=== PATIENT | male | born 1955 | race Caucasian/White ===

== ENCOUNTER 2017-12-08 12:16 | Day surgery (SDC) | payer BC ==
[~2017-12-08 12:16] MED LIST: Acetaminophen TAB* 325 MG PO PRN; Buffered Lidocaine 0.9% SYRIN* 5 ML/SYR SYRINGE INTRADERM ONE
[2017-12-08] MEDS ORDERED: fentaNYL* 50 MCG/ML 2 ML VIAL (100 MCG VIAL) ONE (12:18)
[2017-12-08] MEDS ORDERED: Midazolam* 1 MG/ML 5 ML VIAL (5 MG) ONE (12:18)
[2017-12-08] MEDS ORDERED: Povidone Iodine 5% OPTH* 30 ML BTL ONE (14:34)
[2017-12-08] MEDS ORDERED: acetaZOLAMIDE TAB* 250 MG ONE (14:34)
[2017-12-08] MEDS ORDERED: Lidocaine 2% EPI 1:200000 MPF*10-20 ML VIAL ONE (14:34)
[2017-12-08] MEDS ORDERED: Cyclopentolate 1% OPTH.SOL* 2 ML BTL ONE (14:34)
[2017-12-08] MEDS ORDERED: Phenylephrine 2.5% OPTH.SOL* 2 ML BTL ONE (14:34)
[2017-12-08] MEDS ORDERED: Ketorolac 0.5% OPHTH (NF) 0.5 % 5 ML BTL ONE (14:34)
[2017-12-08] MEDS ORDERED: Neomycin/Polymy/Dex OPTH.SUSP* MAXITROL 0.1% 5 ML ONE (14:34)
[2017-12-08] MEDS ORDERED: Proparacaine 0.5% OPHTH.SOL* 15 ML BTL ONE (14:34)
[2017-12-08] MEDS ORDERED: Lidocaine 1%* 5 ML VIAL ONE (14:34)
[2017-12-08 14:37] VITALS: BP 143/74
--- NOTE | 2017-12-09 03:03 | OP ---
OPERATIVE NOTE: DATE OF OPERATION: 12/08/17 - [facility] DATE OF : 59 SURGEON: Chris Latham M.D. PREOPERATIVE DIAGNOSIS: Cataract, left eye. POSTOPERATIVE DIAGNOSIS: Cataract, left eye. OPERATIVE PROCEDURE: Extracapsular cataract extraction with intraocular lens implant, left eye. DESCRIPTION OF PROCEDURE: The patient was brought to the operating room after being given 1/2% Alcaine with epinephrine drops in the preoperative area. The eye was prepped and draped in the usual sterile fashion. Sterile drape and eyelid speculum were placed. Again, topical 1/2% Alcaine with epinephrine was given. A paracentesis incision was made at the 3 o'clock position with the No.75 blade. Clear cornea incision 2.2 x 2.2-mm was created at the 6 o'clock position starting at the anterior limbus using the 2.2-mm keratome. The anterior chamber was irrigated with 0.4 mL of 1% non-preservative intracameral lidocaine and filled with DisCoVisc. A capsulorrhexis was completed using the cystotome and the Utrata forceps. Hydrodissection was performed with balanced salt solution. The lens nucleus was removed with the Phacoemulsification handpiece without incident. Cortex was removed with the irrigation-aspiration handpiece. The capsular bag was re-inflated using DisCoVisc and an [id number] implant was inserted with the shooter. Pupil was very small, so a Malyugin ring was used to dilate the pupil for capsulorrhexis and removed after the insertion of the lens. The lens was positioned to the 97-degree meridian. Horizontal reference cali made with the patient in the preoperative area in a seated position. The irrigation-aspiration handpiece was used to remove all residual DisCoVisc. The eye was refilled with balanced salt solution and the wound checked and found to be watertight. Topical Maxitrol drops were given. Indication for complex cataract surgery was pupil abnormalities requiring pupil dilation device. A bandage contact lens was placed at the end of the case. [id number]/[facility] #: [id number] MTDShannon
== END 2017-12-08 14:41 | disposition home or self-care (01) ==
LOC: OREAST 12:16
PROVIDERS: ATTEND Specialist
DX: H25.812 Combined forms of age-related cataract, left eye (principal); H21.562 Pupillary abnormality, left eye; H01.021 Squamous blepharitis right upper eyelid; H01.024 Squamous blepharitis left upper eyelid; H01.022 Squamous blepharitis right lower eyelid; H01.025 Squamous blepharitis left lower eyelid; H18 Other disorders of cornea; Z87.891 Personal history of nicotine dependence; I10 Essential (primary) hypertension
CPT/HCPCS: A9270-GY; J2250; J3010; V2787

== ENCOUNTER 2017-12-15 08:52 | Day surgery (SDC) | payer BC ==
[2017-12-15] MEDS ORDERED: Midazolam* 1 MG/ML 2 ML VIAL (2 MG) ONE ×3 (10:12→11:00)
[2017-12-15] MEDS ORDERED: fentaNYL* 50 MCG/ML 2 ML VIAL (100 MCG VIAL) ONE (10:56)
[2017-12-15 11:20] VITALS: BP 127/66
[2017-12-15] MEDS ORDERED: Ketorolac 0.5% OPHTH (NF) 0.5 % 5 ML BTL ONE (12:34)
[2017-12-15] MEDS ORDERED: acetaZOLAMIDE TAB* 250 MG ONE (12:34)
[2017-12-15] MEDS ORDERED: Lidocaine 2% EPI 1:200000 MPF*10-20 ML VIAL ONE (12:34)
[2017-12-15] MEDS ORDERED: Povidone Iodine 5% OPTH* 30 ML BTL ONE (12:34)
[2017-12-15] MEDS ORDERED: Phenylephrine 2.5% OPTH.SOL* 2 ML BTL ONE (12:34)
[2017-12-15] MEDS ORDERED: Lidocaine 1%* 5 ML VIAL ONE (12:34)
[2017-12-15] MEDS ORDERED: Cyclopentolate 1% OPTH.SOL* 2 ML BTL ONE (12:34)
[2017-12-15] MEDS ORDERED: Proparacaine 0.5% OPHTH.SOL* 15 ML BTL ONE (12:34)
[2017-12-15] MEDS ORDERED: Neomycin/Polymy/Dex OPTH.SUSP* MAXITROL 0.1% 5 ML ONE (12:34)
--- NOTE | 2017-12-15 20:45 | OP ---
DATE OF OPERATION: 12/15/17 - [facility] DATE OF : 59 SURGEON: Chris Latham M.D. PREOPERATIVE DIAGNOSIS: Cataract, right eye. POSTOPERATIVE DIAGNOSIS: Cataract, right eye. OPERATIVE PROCEDURE: Extracapsular cataract extraction with intraocular lens implant, right eye. DESCRIPTION OF PROCEDURE: The patient was brought to the operating room after being given 1/2% Alcaine with epinephrine drops in the preoperative area. The eye was prepped and draped in the usual sterile fashion. Sterile drape and eyelid speculum were placed. Again, topical 1/2% Alcaine with epinephrine was given. A paracentesis incision was made at the 9 o'clock position with the No.75 blade. Clear cornea incision 2.2 x 2.2-mm was created at the 12 o'clock position starting at the anterior limbus using the 2.2-mm keratome. The anterior chamber was irrigated with 0.4 mL of 1% non-preservative intracameral lidocaine and filled with DisCoVisc. A capsulorrhexis was completed using the cystotome and the Utrata forceps. Hydrodissection was performed with balanced salt solution. The lens nucleus was removed with the Phacoemulsification handpiece without incident. Cortex was removed with the irrigation-aspiration handpiece. The capsular bag was re-inflated using DisCoVisc and an [id number] implant was inserted with the shooter oriented to the 61-degree meridian. The pupil was only about 4 mm, so a Malyugin ring was used to dilate the pupil prior to capsulorrhexis and removed after orientation of the lens. The irrigation-aspiration handpiece was used to remove all residual DisCoVisc. The eye was refilled with balanced salt solution and the wound checked and found to be watertight. Topical Maxitrol drops were given. The indication for complex cataract surgery is pupil abnormalities requiring pupil dilation device. Horizontal reference margin made with the patient in the seated position in the preoperative area. [id number]/[facility] #: [id number] MTDD
== END 2017-12-15 11:22 | disposition home or self-care (01) ==
LOC: OREAST 08:52
PROVIDERS: ATTEND Specialist
DX: H25.811 Combined forms of age-related cataract, right eye (principal); H21.561 Pupillary abnormality, right eye; H01.021 Squamous blepharitis right upper eyelid; H01.024 Squamous blepharitis left upper eyelid; H01.022 Squamous blepharitis right lower eyelid; H01.025 Squamous blepharitis left lower eyelid; Z87.891 Personal history of nicotine dependence; I10 Essential (primary) hypertension; N40.0 Benign prostatic hyperplasia without lower urinary tract symptoms; M19.90 Unspecified osteoarthritis, unspecified site
CPT/HCPCS: A9270-GY; J2250; J3010; V2787